=== PATIENT | female | born 2005 | race Two or more races ===

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

== ENCOUNTER 2023-03-01 07:59 | Emergency (ER) | payer OTHER ==
[~2023-03-01] VITALS: Ht 175.3 cm; Wt 70.3 kg
[~2023-03-01 07:59] MED LIST: [UNRECOGNIZED DRUG - CODE] PO
--- NOTE | 2023-03-01 08:19 | NUR ---
Patient AOx4, able to express her concerns. Patitreasuren states she has been experiencing painful urination for a couple of days. States she has an IUD in place. Discussed plan of care, patient verbalized agreement. All safety precautions taken.
--- NOTE | 2023-03-01 08:21 | NUR ---
Urine collected, sent to lab.
[2023-03-01 09:52] LABS: BILIRUBIN,URINE 1+ (NEGATIVE); COLOR,URINE DARK YELLOW (YELLOW); LEUKOCYTE ESTERASE ,URINE 2+ (NEGATIVE); NITRITE, URINE POSITIVE (NEGATIVE); PROTEIN,URINE 2+ mg/dl (NEGATIVE); UGLUCOSE TRACE mg/dL (NEGATIVE)
[2023-03-01 10:05] LABS: BACTERIA,URINE Moderate /HPF (None Seen); SQUAMOUS EPITHELIAL CELL,UR Few /HPF (None Seen); WBC,URINE 21-50 /HPF (0-3)
[2023-03-01] MEDS ORDERED: LIDOCAINE 1% INJ 50 ML MDV IJ ONE (10:19)
[2023-03-01] MEDS ORDERED: TDAP [DIPH/PERTUSSIS/TET] 0.5 ML VIAL IM ONE (10:25)
[2023-03-01] MEDS ORDERED: CEPHALEXIN MONOHYDRATE 500 MG CAPSULE PO ONE ×2 (10:30→10:31)
--- NOTE | 2023-03-01 11:24 | NUR ---
Assisted Dr with suturing, educated patient on importance of discharge care and follow up needs. Patient verbalized agreement. Addendum: 03/01/23 at 1129 by NED wrong pt.
[2023-03-01] MEDS ORDERED: IBUPROFEN 600 MG TABLET PO ONE (11:30)
[2023-03-01] MEDS ORDERED: IBUP-1955 PO (11:33)
[2023-03-01] MEDS ORDERED: CEPH500C2 PO (11:33)
[2023-03-01] MEDS ORDERED: IBUPROFEN 600 MG TABLET ONE (11:36)
[2023-03-01 11:43] VITALS: BP 116/64
== END 2023-03-01 11:44 | disposition home or self-care (01) ==
LOC: ER 08:07
DX: N39.0 Urinary tract infection, site not specified (principal); M54.9 Dorsalgia, unspecified
CPT/HCPCS: 99284; 76770; 87086; 84703; 81001; J3490; 90715

== ENCOUNTER 2023-03-17 23:26 | Emergency (ER) | payer OTHER ==
[~2023-03-17] VITALS: Ht 175.3 cm; Wt 70.3 kg
[~2023-03-17 23:26] MED LIST changes: +CEPH500C2 PO; +IBUP-1955 PO
--- NOTE | 2023-03-17 23:39 | NUR ---
BIB MOM FOR C/O L SIDED ARM PIT AND WORSENING DIFFICULTY BREATHING X 1 WK. PLACED IN BED 12 ER ON MONITOR, NOTED WITH TACHYCARDIA. AWARE
[2023-03-18] LABS: BASOPHILS % (AUTO) 0.4 % (0.0-2.0); EOSINOPHILS % (AUTO) 0.5 % (0.0-6.0); HEMATOCRIT 40 % (33-45); LYMPHOCYTES # (AUTO) 2.2 K/uL (0.8-4.8); LYMPHOCYTES % (AUTO) 44.8 % (20.0-44.0); MEAN CORPUSCULAR HGB CONC 33 g/dl (31.0-36.0); MEAN CORPUSCULAR VOLUME 91 fL (82-100); MONOCYTES # (AUTO) 0.5 K/uL (0.1-1.30); MONOCYTES % (AUTO) 10.7 % (2.0-12.0); NEUTROPHILS # (AUTO) 2.1 K/uL (1.8-8.9); NEUTROPHILS % (AUTO) 43.6 % (43.0-81.0); PLATELET COUNT (AUTO) 194 K/uL (150-450); RED BLOOD CELL COUNT(AUTO) 4.34 MIL/uL (4.0-5.2); WHITE BLOOD COUNT (AUTO) 4.9 K/uL (4.3-11.0)
[2023-03-18 00:18] LABS: CALCIUM, SERUM 9.6 mg/dL (8.5-10.1); CREATININE 0.8 mg/dL (0.6-1.3); POTASSIUM 3.9 mmol/L (3.5-5.1)
[2023-03-18 00:57] VITALS: BP 128/88
--- NOTE | 2023-03-18 00:57 | NUR ---
Patient discharged to home in stable condition. Written and verbal after care instructions given. Patient verbalizes understanding of instruction.
== END 2023-03-18 00:59 | disposition home or self-care (01) ==
LOC: ER 23:26
DX: R07.9 Chest pain, unspecified (principal); R06.00 Dyspnea, unspecified
CPT/HCPCS: 36415; 71045-TC; 80048-TC; 85025-TC; 85378-TC

== ENCOUNTER 2023-08-03 16:13 | Emergency (ER) | payer OTHER ==
[~2023-08-03] VITALS: Ht 175.3 cm; Wt 64.4 kg
[2023-08-03] MEDS ORDERED: BENZONATATE 100 MG CAPSULE PO ONE (18:29)
[2023-08-03] MEDS ORDERED: BENZONATATE 100 MG CAPSULE PO PRN (18:30)
[2023-08-03] MEDS ORDERED: BENZ-13 PO (18:54)
[2023-08-03] MEDS ORDERED: BENZONATATE 100 MG CAPSULE PO SCH (19:00)
[2023-08-03 19:14] VITALS: BP 121/81; TEMP 98.1; O2SAT 100
== END 2023-08-03 19:14 | disposition home or self-care (01) ==
LOC: ER 16:13
DX: J06.9 Acute upper respiratory infection, unspecified (principal); R05.9 Cough, unspecified; Z79.899 Other long term (current) drug therapy; Z20.822 Contact with and (suspected) exposure to COVID-19
CPT/HCPCS: 99284; 71045; 87426; C9803

== ENCOUNTER 2023-09-24 04:25 | Emergency (ER) | payer OTHER ==
[~2023-09-24] VITALS: Ht 177.8 cm; Wt 77.1 kg
[~2023-09-24 04:25] MED LIST changes: +BENZ-13 PO
[2023-09-24] MEDS ORDERED: ONDANSETRON HCL/PF 4 MG/2 ML VIAL IVP ONE (05:30)
[2023-09-24] MEDS ORDERED: IV NS 0.9% 1,000 ML BAG IV ONE (05:30)
[2023-09-24] MEDS ORDERED: ONDANSETRON HCL/PF 4 MG/2 ML VIAL ONE (05:36)
[2023-09-24] MEDS ORDERED: ONDA4TAB11 PO (06:08)
[2023-09-24 06:29] LABS: BASOPHILS % (AUTO) 0.1 % (0.0-2.0); EOSINOPHILS % (AUTO) 0.3 % (0.0-6.0); HEMATOCRIT 42 % (33-45); HEMOGLOBIN 14.1 g/dL (11.5-14.8); LYMPHOCYTES # (AUTO) 0.6 K/uL (0.8-4.8); LYMPHOCYTES % (AUTO) 5.3 % (20.0-44.0); MEAN CORPUSCULAR HEMOGLOBIN 30 PG (26.0-33.0); MEAN CORPUSCULAR HGB CONC 33 g/dl (31.0-36.0); MEAN CORPUSCULAR VOLUME 91 fL (82-100); MONOCYTES # (AUTO) 0.8 K/uL (0.1-1.30); MONOCYTES % (AUTO) 6.5 % (2.0-12.0); NEUTROPHILS # (AUTO) 10.4 K/uL (1.8-8.9); NEUTROPHILS % (AUTO) 87.8 % (43.0-81.0); PLATELET COUNT (AUTO) 148 K/uL (150-450); RED BLOOD CELL COUNT(AUTO) 4.66 MIL/uL (4.0-5.2); RED CELL DISTRIBUTION WIDTH 12.5 % (11.5-15.0); WHITE BLOOD COUNT (AUTO) 11.8 K/uL (4.3-11.0)
[2023-09-24 06:33] LABS: APPEARANCE,URINE SLIGHTLY CLOUDY (CLEAR); BILIRUBIN,URINE NEGATIVE (NEGATIVE); BLOOD, URINE NEGATIVE Ery/uL (NEGATIVE); COLOR,URINE YELLOW (YELLOW); KETONES,URINE 3+ mg/dL (NEGATIVE); LEUKOCYTE ESTERASE ,URINE NEGATIVE (NEGATIVE); NITRITE, URINE NEGATIVE (NEGATIVE); PROTEIN,URINE NEGATIVE (NEGATIVE); UGLUCOSE NEGATIVE (NEGATIVE); UROBILINOGEN,URINE 0.2 EU/dL (0.2)
[2023-09-24 06:34] LABS: PREGNANCY TEST URINE QUAL NEGATIVE (NEGATIVE)
[2023-09-24 06:37] LABS: ADD URINE CULTURE NO; BACTERIA,URINE None seen /HPF (None Seen); RBC,URINE 0-2 /HPF (0-2); SQUAMOUS EPITHELIAL CELL,UR Few /HPF (None Seen); WBC,URINE 0-2 /HPF (0-3)
[2023-09-24 07:04] LABS: CALCIUM, SERUM 9.2 mg/dL (8.5-10.1); CREATININE 0.6 mg/dL (0.6-1.3); POTASSIUM 3.5 mmol/L (3.5-5.1)
[2023-09-24 07:10] VITALS: BP 123/82; TEMP 97.9; O2SAT 99
[2023-09-24 07:10] LABS: ALBUMIN 3.8 g/dL (3.4-5.0); BILIRUBIN,DIRECT 0.1 mg/dL (0.0-0.2); BILIRUBIN,TOTAL 0.4 mg/dL (0.2-1.0); TOTAL PROTEIN, SERUM 8.2 g/dL (6.4-8.2)
== END 2023-09-24 07:37 | disposition home or self-care (01) ==
LOC: ER 04:33
DX: R11.2 Nausea with vomiting, unspecified (principal); R19.7 Diarrhea, unspecified
CPT/HCPCS: 99283; 96374; 96361; 85025; 80048; 83690; 80076; 84703; 81001; 36415; J2405; J7030; A6403

== ENCOUNTER 2023-10-31 00:08 | Emergency (ER) | payer OTHER ==
[~2023-10-31] VITALS: Ht 175.3 cm; Wt 77.1 kg
[~2023-10-31 00:08] MED LIST changes: +ONDA4TAB11 PO
[2023-10-31 01:31] VITALS: BP 134/68; TEMP 98; O2SAT 98
== END 2023-10-31 02:44 | disposition home or self-care (01) ==
LOC: ER 00:15
DX: Z71.1 Person with feared health complaint in whom no diagnosis is made (principal)

== ENCOUNTER 2023-10-31 04:05 | Emergency (ER) | payer OTHER ==
[~2023-10-31] VITALS: Ht 175.3 cm; Wt 77.1 kg
[2023-10-31 06:22] VITALS: BP 130/89; TEMP 98.1; O2SAT 99
== END 2023-10-31 06:28 | disposition home or self-care (01) ==
LOC: ER 04:07
DX: S60.511A Abrasion of right hand, initial encounter (principal); F41.9 Anxiety disorder, unspecified; X58.XXXA Exposure to other specified factors, initial encounter; Y93.89 Activity, other specified; Y92.89 Other specified places as the place of occurrence of the external cause; Y99.8 Other external cause status

== ENCOUNTER 2024-01-28 08:21 | Emergency (ER) | payer OTHER ==
[~2024-01-28] VITALS: Ht 175.3 cm; Wt 77.1 kg
[2024-01-28 08:31] VITALS: BP 120/67; TEMP 98.6
[2024-01-28] MEDS ORDERED: KETOROLAC TROMETHAMINE 15 MG/ML VIAL ONE (08:46)
[2024-01-28] MEDS ORDERED: IBUP-1955 PO (08:47)
[2024-01-28] MEDS: KETOROLAC TROMETHAMINE 15 MG/ML VIAL IM ONE (09:06)
[2024-01-28 09:07] VITALS: O2SAT 99
== END 2024-01-28 09:08 | disposition home or self-care (01) ==
LOC: ER 08:30
DX: J06.9 Acute upper respiratory infection, unspecified (principal); R05.9 Cough, unspecified; R09.81 Nasal congestion
CPT/HCPCS: 99283; 96372; J1885

== ENCOUNTER 2024-02-04 10:12 | Emergency (ER) | payer OTHER ==
[~2024-02-04] VITALS: Ht 175.3 cm; Wt 76.2 kg
[2024-02-04 11:05] LABS: BASOPHILS % (AUTO) 0.1 % (0.0-2.0); EOSINOPHILS # (AUTO) 0.1 K/uL (0.0-0.7); EOSINOPHILS % (AUTO) 1.3 % (0.0-6.0); HEMATOCRIT 40 % (33-45); HEMOGLOBIN 13.3 g/dL (11.5-14.8); LYMPHOCYTES # (AUTO) 1.9 K/uL (0.8-4.8); LYMPHOCYTES % (AUTO) 33.7 % (20.0-44.0); MEAN CORPUSCULAR HEMOGLOBIN 30 PG (26.0-33.0); MEAN CORPUSCULAR HGB CONC 33 g/dl (31.0-36.0); MEAN CORPUSCULAR VOLUME 89 fL (82-100); MONOCYTES # (AUTO) 0.5 K/uL (0.1-1.30); MONOCYTES % (AUTO) 9.5 % (2.0-12.0); NEUTROPHILS # (AUTO) 3.1 K/uL (1.8-8.9); NEUTROPHILS % (AUTO) 55.4 % (43.0-81.0); PLATELET COUNT (AUTO) 159 K/uL (150-450); RED BLOOD CELL COUNT(AUTO) 4.48 MIL/uL (4.0-5.2); RED CELL DISTRIBUTION WIDTH 12.5 % (11.5-15.0); WHITE BLOOD COUNT (AUTO) 5.6 K/uL (4.3-11.0)
[2024-02-04 11:15] LABS: CALCIUM, SERUM 8.7 mg/dL (8.5-10.1); CARBON DIOXIDE 28 mmol/L (21-32); CHLORIDE 103 mmol/L (98-107); CREATININE 0.7 mg/dL (0.6-1.3); GLUCOSE 86 mg/dL (74-106); POTASSIUM 3.8 mmol/L (3.5-5.1); SODIUM SERUM 135 mmol/L (136-145); UREA NITROGEN, BLOOD 11 mg/dL (7-18)
[2024-02-04 11:22] LABS: ALANINE AMINOTRANSFERASE 16 U/L (12-78); ALBUMIN 3.5 g/dL (3.4-5.0); ALKALINE PHOSPHATASE 66 U/L (46-116); ASPARTATE AMINOTRANSFERASE 12 U/L (15-37); BILIRUBIN,DIRECT 0.1 mg/dL (0.0-0.2); BILIRUBIN,TOTAL 0.3 mg/dL (0.2-1.0); TOTAL PROTEIN, SERUM 7.4 g/dL (6.4-8.2)
[2024-02-04 11:46] LABS: PREGNANCY TEST URINE QUAL NEGATIVE (NEGATIVE)
[2024-02-04 12:59] VITALS: BP 128/71; TEMP 98.5; O2SAT 100
== END 2024-02-04 12:59 | disposition home or self-care (01) ==
LOC: ER 10:18
DX: R10.13 Epigastric pain (principal); R07.89 Other chest pain; R05.9 Cough, unspecified
CPT/HCPCS: 36415; 71045-TC; 80048-TC; 80076-TC; 83690-TC; 84484-TC; 84703-TC; 85025-TC

== ENCOUNTER 2024-05-09 14:53 | Emergency (ER) | payer OTHER ==
[~2024-05-09] VITALS: Ht 175.3 cm; Wt 77.6 kg
[2024-05-09] MEDS ORDERED: ACETAMINOPHEN ES 500 MG TABLET ONE (15:51)
[2024-05-09] MEDS: ACETAMINOPHEN 325 MG TABLET PO ONE (15:53)
[2024-05-09 16:14] VITALS: BP 110/88; TEMP 98.7; O2SAT 98
== END 2024-05-09 16:15 | disposition home or self-care (01) ==
LOC: ER 14:55
DX: S09.8XXA Other specified injuries of head, initial encounter (principal); Z79.891 Long term (current) use of opiate analgesic; Z79.1 Long term (current) use of non-steroidal anti-inflammatories (NSAID); Z79.899 Other long term (current) drug therapy; W22.8XXA Striking against or struck by other objects, initial encounter; Y93.89 Activity, other specified; Y92.89 Other specified places as the place of occurrence of the external cause; Y99.8 Other external cause status
CPT/HCPCS: 99282; A4223